=== PATIENT | female | born 1980 | race African-American/Black ===

== ENCOUNTER 2021-11-17 16:58 | Emergency (ER) | payer MEDICAID, OTHER ==
[~2021-11-17] VITALS: Ht 162.6 cm; Wt 122.0 kg
[2021-11-17 22:00] VITALS: BP 154/86
== END 2021-11-17 22:14 | disposition home or self-care (01) ==
LOC: EDBD 16:58 → ER 16:58
DX: U07.1 COVID-19 (principal); B34.9 Viral infection, unspecified
CPT/HCPCS: 36415; 71045; 87426